=== PATIENT | female | born 1990 | race African-American/Black ===

== ENCOUNTER 2017-02-11 18:38 | Emergency (ER) | payer SELFPAY ==
[2017-02-11 19:06] VITALS: BP 94/64
[2017-02-11 20:17] LABS: Basophils % (Auto) 0.2 % (0.0-1.8); Eosinophils % (Auto) 0.5 % (0.0-4.3); Hematocrit 34.4 % (30.3-42.9); Hemoglobin 11.5 gm/dl (10.1-14.3); Mean Corpuscular HGB Conc 34 % (30-34); Mean Corpuscular Hemoglobin 30 pg (28-32); Mean Corpuscular Volume 90 fl (79-97); Platelet Count 329 K/mm3 (140-440); Red Blood Count 3.84 M/mm3 (3.65-5.03); Red Cell Distribution Width 13.2 % (13.2-15.2); White Blood Count 11.1 K/mm3 (4.5-11.0)
[2017-02-11 20:20] LABS: Bilirubin,Urine NEG (Negative); Blood,Urine NEG (Negative); Ketones,Urine NEG (Negative); Leukocyte Esterase,Urine TR (Negative); Mucus,Urine FEW /HPF; Nitrite,Urine NEG (Negative); Protein,Urine <15 mg/dL mg/dL (Negative)
[2017-02-11 20:27] LABS: RBC,Urine < 1.0 /HPF (0.0-6.0); WBC,Urine < 1.0 /HPF (0.0-6.0)
[2017-02-11 20:33] LABS: Alanine Aminotransferase 12 units/L (7-56); Albumin 3.2 g/dL (3.9-5); Alkaline Phosphatase 48 units/L (35-129); Anion Gap 16 mmol/L; Blood Urea Nitrogen 6 mg/dL (7-17); Calcium 8.9 mg/dL (8.4-10.2); Carbon Dioxide 23 mmol/L (22-30); Chloride 100.4 mmol/L (98-107); Glucose 93 mg/dL (65-100); Lipase 26 units/L (13-60); Potassium 3.4 mmol/L (3.6-5.0); Sodium 136 mmol/L (137-145); Total Protein 6.5 g/dL (6.3-8.2)
== END 2017-02-12 00:34 | disposition left against medical advice (07) ==
LOC: ED 18:38
DX: R10.9 Unspecified abdominal pain (principal); Z53.21 Procedure and treatment not carried out due to patient leaving prior to being seen by health care provider
CPT/HCPCS: 36415; 80053; 81001; 83690; 84702; 85025

== ENCOUNTER 2017-06-05 12:29 | Outpatient (CLI) | payer MEDICAID | END 2017-06-05 14:05 | disposition home or self-care (01) | LOC: TRG 12:29 | PROVIDERS: ATTEND Obstetrics & Gynecology | DX: O99.333 Smoking (tobacco) complicating pregnancy, third trimester (principal); O47.1 False labor at or after 37 completed weeks of gestation; Z3A.37 37 weeks gestation of pregnancy | CPT/HCPCS: 59025 ==

== ENCOUNTER 2017-06-23 16:24 | Outpatient (CLI) | payer MEDICAID ==
[2017-06-23 18:04] VITALS: BP 116/74
== END 2017-06-23 18:15 | disposition home or self-care (01) ==
LOC: TRG 16:24
PROVIDERS: ATTEND Obstetrics & Gynecology
DX: O48.0 Post-term pregnancy (principal); Z3A.40 40 weeks gestation of pregnancy
CPT/HCPCS: 59025

== ENCOUNTER 2018-09-24 23:14 | Emergency (ER) | payer MEDICAID ==
[2018-09-25] MEDS ORDERED: DECADRON IM ONE (00:44)
[2018-09-25] MEDS ORDERED: BICILLIN L-A IM ONE (00:44)
[2018-09-25] MEDS ORDERED: TORADOL IM ONE (00:45)
--- NOTE | 2018-09-25 02:24 | Emergency Department Report ---
ED ENT HPI - General Chief complaint: Sore Throat Stated complaint: COUGH/THROAT PAIN Time Seen by Provider: 09/25/18 00:35 Source: patient Mode of arrival: Ambulatory Limitations: No Limitations - History of Present Illness Initial comments: Patient is a 28-year-old female with no past medical history presents to the ED with complaint of acute onset persistent severe sore throat, swollen tonsils, nasal and sinus congestion for the last 3 days. Patient states that swallowing makes the pain worse. Patient denies dizziness, headache, abdominal pain, chest pain, shortness of breath, fever, chills, dysuria, urinary frequency and urgency, back pain, discharge or an dysphonia. MD complaint: sore throat, difficulty swallowing -: Sudden, days(s) (3) Location: nose, throat Severity: severe Severity scale (0 -10): 7 Quality: burning, aching, sharp Consistency: constant Improves with: none Worsens with: swallowing, eating Associated Symptoms: cough, pain with swallowing - Related Data Previous Rx's Medication Instructions Recorded Last Taken Type Ferrous Sulfate [Feosol 325 MG tab] 325 mg PO BID #60 tablet 06/28/17 Unknown Rx Ibuprofen [Motrin] 800 mg PO Q8HR PRN #20 tablet 09/25/18 Unknown Rx Lidocaine Viscous 2% 15 ml MM Q6H PRN #120 udc 09/25/18 Unknown Rx methylPREDNISolone [Medrol] 4 mg PO DAILY #21 tab.ds.pk 09/25/18 Unknown Rx Allergies Allergy/AdvReac Type Severity Reaction Status Date / Time No Known Allergies Allergy Verified 06/23/17 16:47 ED Dental HPI - General Chief complaint: Sore Throat Stated complaint: COUGH/THROAT PAIN Time Seen by Provider: 09/25/18 00:35 Source: patient Mode of arrival: Ambulatory Limitations: No Limitations - History of Present Illness Initial comments: Patient is a 28-year-old female with no past medical history presents to the ED with complaint of acute onset persistent severe sore throat, swollen tonsils, nasal and sinus congestion for the last 3 days. Patient states that swallowing makes the pain worse. Patient denies dizziness, headache, abdominal pain, chest pain, shortness of breath, fever, chills, dysuria, urinary frequency and urgency, back pain, discharge or an dysphonia. MD complaint: sore throat, difficulty swallowing -: Sudden, days(s) (4) 1 - Swollen erythematous oropharynx and tonsils Severity: severe Quality: sharp Consistency: constant Improves with: none Worsens with: swallowing, eating Dental Associated Symptons: Yes: Headache, Sore Throat - Related Data Previous Rx's Medication Instructions Recorded Last Taken Type Ferrous Sulfate [Feosol 325 MG tab] 325 mg PO BID #60 tablet 06/28/17 Unknown Rx Ibuprofen [Motrin] 800 mg PO Q8HR PRN #20 tablet 09/25/18 Unknown Rx Lidocaine Viscous 2% 15 ml MM Q6H PRN #120 udc 09/25/18 Unknown Rx methylPREDNISolone [Medrol] 4 mg PO DAILY #21 tab.ds.pk 09/25/18 Unknown Rx Allergies Allergy/AdvReac Type Severity Reaction Status Date / Time No Known Allergies Allergy Verified 06/23/17 16:47 ED Review of Systems ROS: Stated complaint: COUGH/THROAT PAIN Other details as noted in HPI Comment: All other systems reviewed and negative Constitutional: no symptoms reported Eyes: as per HPI ENT: as per HPI, throat pain, congestion Respiratory: no symptoms reported, cough. denies: SOB with exertion Cardiovascular: as per HPI. denies: chest pain, palpitations Endocrine: no symptoms reported Gastrointestinal: as per HPI. denies: nausea, vomiting, diarrhea Genitourinary: as per HPI Musculoskeletal: as per HPI Skin: as per HPI Neurological: as per HPI Psychiatric: as per HPI Hematological/Lymphatic: as per HPI ED Past Medical Hx - Past Medical History Previous Medical History?: No Hx Hypertension: No Hx Congestive Heart Failure: No Hx Diabetes: No Hx Deep Vein Thrombosis: No Hx Renal Disease: No Hx Sickle Cell Disease: No Hx Seizures: No Hx Asthma: No Hx COPD: No Hx HIV: No - Surgical History Past Surgical History?: No - Social History Smoking Status: Former Smoker Substance Use Type: None - Medications Home Medications: Home Medications Medication Instructions Recorded Confirmed Last Taken Type Ferrous Sulfate [Feosol 325 MG tab] 325 mg PO BID #60 tablet 06/28/17 Unknown Rx Ibuprofen [Motrin] 800 mg PO Q8HR PRN #20 tablet 09/25/18 Unknown Rx Lidocaine Viscous 2% 15 ml MM Q6H PRN #120 udc 09/25/18 Unknown Rx methylPREDNISolone [Medrol] 4 mg PO DAILY #21 tab.ds.pk 09/25/18 Unknown Rx ED Physical Exam - General Limitations: No Limitations General appearance: alert, in no apparent distress - Head Head exam: Present: atraumatic, normocephalic - Eye Eye exam: Present: normal appearance, PERRL, EOMI Pupils: Present: normal accommodation - ENT ENT exam: Present: other (Erythematous, swollen tonsils. No sign of peritonsillar abscess) - Neck Neck exam: Present: normal inspection, lymphadenopathy - Respiratory Respiratory exam: Present: normal lung sounds bilaterally. Absent: respiratory distress, wheezes, chest wall tenderness - Cardiovascular Cardiovascular Exam: Present: regular rate, normal rhythm, normal heart sounds ED Course Vital Signs 09/24/18 23:19 Temperature 98.7 F Pulse Rate 92 H Respiratory 16 Rate Blood Pressure 134/75 O2 Sat by Pulse 96 Oximetry ED Medical Decision Making - Medical Decision Making Patient is alert and oriented 3 and is not in distress with normal vital signs. Rapid strep test is positive for group A strep. Patient was treated in the ED for pain and also given Bicillin LA 1.2 million units intramuscular injections in the ED, also treated with Decadron and pain medications. On reevaluation, the patient's pain is well controlled and patient was discharged home on medications and referred to the ENT physician for follow-up. Patient advised to return to the ED immediately if symptoms get worse. - Differential Diagnosis Streptococcal pharyngitis, Viral pharyngitis, peritonsillar abscess Critical care attestation.: If time is entered above; I have spent that time in minutes in the direct care of this critically ill patient, excluding procedure time. ED Disposition Clinical Impression: Streptococcal pharyngitis, Acute upper respiratory infection Acute tonsillitis Qualifiers: Pharyngitis/tonsillitis etiology: streptococcus Streptococcal tonsillitis recurrence: not specified as recurrent or not Qualified Code(s): J03.00 - Acute streptococcal tonsillitis, unspecified Disposition: DC- TO HOME OR SELFCARE Is pt being admited?: No Does the pt Need Aspirin: No Condition: Stable Instructions: Strep Throat (ED), Tonsillitis (ED) Additional Instructions: Take medications with food, drink plenty of fluids and follow up with your primary care physician as advised. Consider following up with the ENT physician by contacting his office first thing in the morning for follow-up. Return to the ED immediately if symptoms get worse. Prescriptions: Lidocaine Viscous 2% 15 ml MM Q6H PRN #120 udc PRN Reason: Pain , Severe (7-10) methylPREDNISolone [Medrol] 4 mg PO DAILY #21 tab.ds.pk Ibuprofen [Motrin] 800 mg PO Q8HR PRN #20 tablet PRN Reason: Pain , Severe (7-10) Referrals: [facility] MD BLANK [Primary Care Provider] - 3-5 Days CARLOS PERDUE MD [Staff Physician] - 3-5 Days Time of Disposition: 02:30 Print Language: KOSOVAN
[2018-09-25 02:29] LABS: Amorphous Crystals,Urine 1+; Bacteria,Urine 1+ /HPF (Negative); Bilirubin,Urine NEG (Negative); Blood,Urine NEG (Negative); Calcium Oxalate Crystals,Urine 3+; Color,Urine Yellow (Yellow); HCG Qualitative,Urine Negative (Negative); Mucus,Urine FEW /HPF; Protein,Urine <15 mg/dL mg/dL (Negative); Urobilinogen,Urine < 2.0 mg/dL (<2.0)
[2018-09-25 02:49] VITALS: BP 109/74
== END 2018-09-25 02:47 | disposition home or self-care (01) ==
LOC: ED 23:14
DX: J02.0 Streptococcal pharyngitis (principal); J03.00 Acute streptococcal tonsillitis, unspecified
CPT/HCPCS: 81001; 81025; 87430; 96372; 99283; J0561; J1100; J1885

== ENCOUNTER 2021-04-24 08:02 | Outpatient (CLI) | payer SELFPAY ==
[2021-04-24 08:34] VITALS: BP 108/65
== END 2021-04-24 11:30 | disposition home or self-care (01) ==
LOC: TRG 08:02 → APU 08:04 → TRG 11:30
PROVIDERS: ATTEND Obstetrics & Gynecology
DX: Z34.93 Encounter for supervision of normal pregnancy, unspecified, third trimester (principal); Z3A.37 37 weeks gestation of pregnancy
CPT/HCPCS: 59025

== ENCOUNTER 2021-05-09 15:17 | Inpatient (IN) | payer OTHER ==
[2021-05-09] MEDS ORDERED: LACTATED RINGERS 1,000 ML ONE ×2 (17:04→18:33)
--- NOTE | 2021-05-09 20:26 | History and Physical Report ---
History of Present Illness Date of examination: 05/09/21 Date of admission: 05/09/21 15:17 Chief complaint: Term , obesity. History of present illness: Poor care. . Norberto 05/11/21. Past History Past Medical History: no pertinent history Past Surgical History: no surgical history - Obstetrical History Expected Date of Delivery: 05/11/21 Actual Gestation: 39 Week(s) 5 Day(s) : 4 Para: 2 Medications and Allergies Allergies Allergy/AdvReac Type Severity Reaction Status Date / Time No Known Allergies Allergy Verified 06/23/17 16:47 Home Medications Medication Instructions Recorded Confirmed Last Taken Type No Known Home Medications [No 05/09/21 05/09/21 Unknown History Reported Home Medications] Review of Systems All systems: negative - Vital Signs Vital signs: Vital Signs Pulse Pulse Ox 76 100 05/09/21 17:01 05/09/21 17:01 Temp Pulse Resp BP Pulse Ox 98.5 F 90 111/73 100 05/09/21 17:33 05/09/21 20:01 05/09/21 17:02 05/09/21 20:01 - Physical Exam Cardiovascular: Normal S1, Normal S2 Lungs: Positive: Normal air movement Abdomen: Positive: distention Vagina: Positive: normal moisture Cervix: Negative: lesion, discharge Uterus: Positive: enlarged Anus/Rectum: Positive: normal perianal skin, heme negative. Negative: rectal mass, hemorrhoids Extremities: Positive: normal Deep Tendon Reflex Grade: Normal +2 - Obstetrical FHR: category 1 Cervical Dilatation: 1.5 Cervical Effacement Percentage: 70 station: 0 Results All other labs normal. Assessment and Plan - Patient Problems (1) History of inadequate care Current Visit: Yes Status: Acute (2) with 39 completed weeks gestation Current Visit: Yes Status: Acute (3) Obesity affecting in third trimester Current Visit: Yes Status: Acute Plan to address problem: Admit for induction of labor.
[2021-05-10] MEDS ORDERED: LACTATED RINGERS 1,000 ML ONE (02:29)
[2021-05-10] MEDS ORDERED: LACTATED RINGERS 1,000 ML IV SCH ×2 (04:00→10:00)
[2021-05-10 04:45] LABS: Basophils # (Auto) 0.2 K/mm3 (0.0-0.1); Basophils % (Auto) 2.3 % (0.0-1.8); Eosinophils % (Auto) 0.3 % (0.0-4.3); Hematocrit 33.5 % (30.3-42.9); Hemoglobin 10.7 gm/dl (10.1-14.3); Lymphocytes # (Auto) 2.4 K/mm3 (1.2-5.4); Lymphocytes % (Auto) 29.8 % (13.4-35.0); Mean Corpuscular HGB Conc 32 % (30-34); Mean Corpuscular Volume 88 fl (79-97); Monocytes # (Auto) 0.3 K/mm3 (0.0-0.8); Monocytes % (Auto) 3.9 % (0.0-7.3); Platelet Count 334 K/mm3 (140-440); Red Blood Count 3.81 M/mm3 (3.65-5.03); Red Cell Distribution Width 13.3 % (13.2-15.2)
[2021-05-10] MEDS ORDERED: TERBUTALINE 1 MG/1 ML INJ SUB-Q PRN (09:13)
[2021-05-10] MEDS ORDERED: LOPERAMIDE 2 MG CAP PO PRN (09:13)
[2021-05-10] MEDS ORDERED: LIDOCAINE (2%) 20 MG/1 ML VIAL 20 ML MDV INFILTRATI NR (09:13)
[2021-05-10] MEDS ORDERED: CARBOPROST TROMETHAMINE 250 MCG/1 ML INJ IM PRN (09:13)
[2021-05-10] MEDS ORDERED: miSOPROStol 200 MCG TAB PR PRN (09:13)
[2021-05-10] MEDS ORDERED: AMPICILLIN/NS 2 GM/100 ML 2 GM/100 ML BAG IV ONE ×2 (09:13→09:38)
[2021-05-10] MEDS ORDERED: METHYLERGONOVINE MALEATE 0.2 MG/ML VIAL IM PRN (09:13)
[2021-05-10] MEDS ORDERED: OXYTOCIN 10 UNIT/1 ML INJ IM PRN (09:13)
[2021-05-10] MEDS ORDERED: BUTORPHANOL 2 MG/1 ML INJ IV PRN (10:00)
[2021-05-10] MEDS ORDERED: OXYTOCIN DRIP 30 UNITS/500 ML BAG IV SCH ×2 (10:00)
[2021-05-10] MEDS ORDERED: fentaNYL 100 MCG/2 ML INJ IV PRN (10:00)
[2021-05-10] MEDS ORDERED: ONDANSETRON 4 MG/2 ML INJ IV PRN ×2 (10:00→18:49)
[2021-05-10] MEDS ORDERED: ACETAMINOPHEN 325 MG TAB PO PRN (10:00)
[2021-05-10] MEDS ORDERED: AMPICILLIN/NS 1 GM/50 ML 1 GM/50 ML BAG IV SCH (14:00)
--- NOTE | 2021-05-10 14:12 | Event Note ---
Date: 05/10/21 Mother and fetus stable. 3cm, 70% effaced. Station 0. ARM done with clear fluids.
[2021-05-10] MEDS ORDERED: NALOXONE 2 MG/2 ML INJ IV PRN (14:22)
[2021-05-10] MEDS ORDERED: ePHEDrine SULFATE 50 MG/1 ML INJ IV PRN (14:22)
--- NOTE | 2021-05-10 14:22 | Anesthesia Consultation ---
Anesthesia Consult and Med Hx Date of service: 05/10/21 - Airway Anesthetic Teeth Evaluation: Good ROM Head & Neck: Adequate Mental/Hyoid Distance: Adequate Mallampati Class: Class II Intubation Access Assessment: Probably Good - Pulmonary Exam CTA: Yes - Cardiac Exam Cardiac Exam: RRR - Pre-Operative Health Status ASA Pre-Surgery Classification: ASA3 Proposed Anesthetic Plan: Epidural - Pulmonary Hx Asthma: No COPD: No Hx Pneumonia: No - Cardiovascular System Hx Hypertension: No - Central Nervous System Hx Seizures: No Hx Psychiatric Problems: No - Endocrine Hx Renal Disease: No Hx End Stage Renal Disease: No Hx Hypothyroidism: No Hx Hyperthyroidism: No - Hematic Hx Anemia: No Hx Sickle Cell Disease: No - Other Systems Hx Alcohol Use: No Hx Substance Use: Yes (UDS negative ) Hx Cancer: No Hx Obesity: No - Additional Comments Anesthesia Medical History Comments: unknown health history due to lack of care
--- NOTE | 2021-05-10 14:45 | Progress Note ---
Labor Epidural - Labor Epidural Start Time: 14:35 Stop Time: 14:44 Performed by:: KIM ARCEO Procedure: Patient is requesting epidural for labor pain. H&P, and labs reviewed. Procedure explained, questions answered, consent obtained. Patient in sitting position with blood pressure cuff and pulse ox on and working. Timeout performed immediately before start of procedure. Sterile Duraprep prep/drape. 3 mL 1% lidocaine skin wheal at L[3]-L[4]. 17-gauge tuohy epidural needle advanced to [id number] with saline at [7] cm. 25-gauge spinal needle advanced until clear, free-flowing CSF. Intrathecal dexmedetomidine [5] mcg administered and needle removed. Epidural catheter advanced to [12] cm, negative aspiration for blood and csf, negative test dose 3 ml 1.5% lidocaine with epinephrine. Sterile sponge and tegaderm applied, followed by tape reinforcement. Patient tolerated procedure well. Suss SRNA
[2021-05-10] MEDS ORDERED: fentaNYL-BUPIV 2 MCG/ML-0.125% 200 MCG/100 ML BAG EPIDURAL SCH (15:00)
[2021-05-10] MEDS: ePHEDrine SULFATE 50 MG/1 ML INJ IV PRN ×2 (15:30→15:56)
[2021-05-10 17:21] LABS: Hepatitis C Virus Antibody Non-Reactive (NonReactive)
[2021-05-10] MEDS ORDERED: diphenhydrAMINE 25 MG CAP PO PRN (18:49)
[2021-05-10] MEDS ORDERED: PROMETHAZINE 25 MG TAB PO PRN (18:49)
[2021-05-10] MEDS ORDERED: PROMETHAZINE 25 MG RECT SUPP PR PRN (18:49)
[2021-05-10] MEDS ORDERED: LANOLIN/ZINC/DIMETHICONE (LANSINOH) 7 GM TP PRN (18:49)
[2021-05-10] MEDS ORDERED: WITCH HAZEL/ GLYCERIN PAD TP PRN (18:49)
[2021-05-10] MEDS ORDERED: MAGNESIUM HYDROXIDE (MOM) ORAL LIQD UDC PO PRN (18:49)
[2021-05-10] MEDS ORDERED: HYDROcodone/ACETAMINOPHEN 5-325 MG TAB PO PRN (19:08)
--- NOTE | 2021-05-10 19:20 | Procedure Note ---
OB Delivery Note - Delivery Date of Delivery: 05/10/21 Surgeon: BHAVANA DOSS Estimated blood loss: <100cc - Vaginal Delivery presentation: vertex Delivery position: OA Intrapartum events: none Delivery induction: AROM Delivery augmentation: pitocin Delivery monitor: external FHT, external uterine Route of delivery: Delivery placenta: spontaneous, expressed Delivery cord: nuchal cord, 3 umbilical vessels Episiotomy: none Delivery laceration: none Anesthesia: epidural - Infant A at 1 minute: 8 at 5 minutes: 9 Gender: Female
[2021-05-10] MEDS ORDERED: MINERAL OIL 30 ML ORAL LIQD PO PRN (22:00)
[2021-05-10] MEDS: IBUPROFEN 600 MG TAB PO SCH (22:53)
--- NOTE | 2021-05-11 00:35 | Progress Note ---
Assessment and Plan - Patient Problems (1) History of inadequate care Current Visit: Yes Status: Resolved (2) with 39 completed weeks gestation Current Visit: Yes Status: Resolved (3) Obesity affecting in third trimester Current Visit: Yes Status: Chronic (4) Status post normal vaginal delivery Current Visit: Yes Status: Acute Plan to address problem: Stable. Observation to continue. Subjective - Subjective Date of service: 05/11/21 Principal diagnosis: status post day 1 Interval history: Poor care. . Norberto 05/11/21. Objective - Vital Signs Latest vital signs: Vital Signs Temp Pulse Resp BP Pulse Ox Pulse Ox 05/10/21 23:56 98.6 F 110 H 18 94/65 96 05/10/21 20:22 104 H 99 05/10/21 20:17 120 H 99 05/10/21 20:12 106 H 99 05/10/21 20:07 99 H 99 05/10/21 20:02 108 H 99 05/10/21 19:57 106 H 99 05/10/21 19:52 101 H 98 05/10/21 19:47 97 H 99 05/10/21 19:42 105 H 99 05/10/21 19:37 111 H 100 05/10/21 19:32 101 H 100 05/10/21 19:27 111 H 100 05/10/21 19:22 100 H 99 05/10/21 19:17 102 H 110/74 99 05/10/21 19:12 99.2 F 102 H 99 05/10/21 19:07 105 H 99 05/10/21 19:02 98 H 99 05/10/21 18:57 105 H 99 05/10/21 18:56 100 H 121/55 05/10/21 18:52 103 H 99 05/10/21 18:47 114 H 100 05/10/21 18:42 97 H 100 05/10/21 18:37 101 H 99 05/10/21 18:32 99 H 100 05/10/21 18:27 104 H 99 05/10/21 17:55 144 H 100 05/10/21 17:50 110 H 100 05/10/21 17:45 129 H 100 05/10/21 17:40 176 H 95 05/10/21 17:35 121 H 100 05/10/21 17:30 128 H 100 05/10/21 17:25 109 H 100 05/10/21 17:20 91 H 100 05/10/21 17:15 110 H 100 05/10/21 17:12 95 H 99/65 05/10/21 17:10 100 H 100 05/10/21 17:05 104 H 100 05/10/21 17:00 120 H 100 05/10/21 16:55 94 H 100 05/10/21 16:50 98 H 100 05/10/21 16:45 80 100 05/10/21 16:42 90 92/61 05/10/21 16:40 83 100 05/10/21 16:37 58 L 74 L 05/10/21 16:35 85 98/66 100 05/10/21 16:30 81 100 05/10/21 16:28 100 H 96/68 05/10/21 16:25 82 100 05/10/21 16:24 78 98/65 05/10/21 16:20 81 100 05/10/21 16:15 79 100 05/10/21 16:10 113 H 100 05/10/21 16:09 77 100/62 05/10/21 16:05 79 97/69 05/10/21 16:04 83 100 05/10/21 16:00 71 89/51 05/10/21 15:59 74 100 05/10/21 15:55 76 86/54 05/10/21 15:54 76 100 05/10/21 15:49 85 84/50 100 05/10/21 15:45 77 82/51 05/10/21 15:44 83 84/51 100 05/10/21 15:42 84 92/43 05/10/21 15:39 79 100 05/10/21 15:34 75 100 05/10/21 15:33 78 92/50 05/10/21 15:29 98 H 89/50 100 05/10/21 15:27 82 83/49 05/10/21 15:24 88 100 05/10/21 15:19 107 H 100 05/10/21 15:14 87 99 05/10/21 15:09 76 100 05/10/21 15:08 97 H 101/60 05/10/21 15:04 104 H 105/64 100 05/10/21 15:00 100 H 98/64 05/10/21 14:59 97 H 100 05/10/21 14:54 82 108/56 100 05/10/21 14:49 91 H 100 05/10/21 14:44 89 99 05/10/21 14:43 96 H 136/62 05/10/21 14:39 124 H 131/59 100 05/10/21 14:34 89 100 05/10/21 14:33 90 108/65 05/10/21 14:29 89 107/66 100 05/10/21 14:24 86 100 05/10/21 14:19 82 98 05/10/21 14:14 79 99 05/10/21 14:09 82 100 05/10/21 14:04 89 100 05/10/21 13:59 83 100 05/10/21 13:55 76 97/63 05/10/21 13:54 81 100 05/10/21 13:49 80 100 05/10/21 13:44 89 99 05/10/21 13:32 83 100 05/10/21 13:27 91 H 99 05/10/21 13:26 87 148/77 05/10/21 13:22 79 100 05/10/21 13:17 86 100 05/10/21 13:12 83 100 05/10/21 13:07 82 98 05/10/21 13:02 77 100 05/10/21 12:57 81 100 05/10/21 12:55 75 113/78 05/10/21 12:52 74 100 05/10/21 12:47 82 100 05/10/21 12:42 82 99 05/10/21 12:37 92 H 100 05/10/21 12:32 77 100 05/10/21 12:27 89 100 05/10/21 12:25 78 107/70 05/10/21 12:22 87 100 05/10/21 12:17 88 100 05/10/21 12:12 93 H 100 05/10/21 12:07 80 100 05/10/21 12:02 94 H 100 05/10/21 11:57 91 H 100 05/10/21 11:56 81 110/69 05/10/21 11:52 97 H 99 05/10/21 11:47 86 100 05/10/21 11:42 89 99 05/10/21 11:37 85 100 05/10/21 11:32 84 100 05/10/21 11:27 87 100 05/10/21 11:25 75 111/72 05/10/21 11:22 81 100 05/10/21 11:11 88 99 05/10/21 11:06 80 99 05/10/21 11:01 84 99 05/10/21 10:56 101 H 99 05/10/21 10:55 78 105/71 05/10/21 10:51 86 100 05/10/21 10:46 97 H 100 05/10/21 10:41 95 H 99 05/10/21 10:36 100 H 99 05/10/21 10:31 84 100 05/10/21 10:26 93 H 99 05/10/21 10:25 82 121/78 05/10/21 10:21 87 100 05/10/21 10:16 94 H 100 05/10/21 10:11 84 99 05/10/21 10:06 95 H 98 05/10/21 10:01 83 97 05/10/21 09:56 99 H 99 05/10/21 09:54 86 117/79 05/10/21 09:51 111 H 100 05/10/21 09:46 87 100 05/10/21 09:41 83 100 05/10/21 09:36 91 H 100 05/10/21 09:31 89 100 05/10/21 09:26 89 100 05/10/21 09:21 83 100 05/10/21 09:16 90 100 05/10/21 09:11 101 H 100 05/10/21 09:06 79 100 05/10/21 09:01 81 100 05/10/21 08:56 78 100 05/10/21 08:51 94 H 100 05/10/21 08:42 89 99 05/10/21 08:37 82 99 05/10/21 08:32 86 99 05/10/21 08:27 85 99 05/10/21 08:22 79 100 05/10/21 08:17 77 100 05/10/21 08:12 79 100 100 05/10/21 08:07 92 H 98 05/10/21 08:02 85 100 05/10/21 07:57 85 100 05/10/21 07:52 75 100 05/10/21 07:47 73 100 05/10/21 07:42 70 100 05/10/21 07:37 80 100 05/10/21 07:32 74 100 05/10/21 07:27 74 100 05/10/21 07:22 100 05/10/21 07:10 79 100 05/10/21 07:05 89 100 05/10/21 07:00 82 100 05/10/21 06:55 78 99 05/10/21 06:50 89 99 05/10/21 06:45 81 99 05/10/21 06:40 83 100 05/10/21 06:35 85 100 05/10/21 06:30 75 100 05/10/21 06:25 82 100 05/10/21 06:20 87 100 05/10/21 06:15 86 100 05/10/21 06:10 83 100 05/10/21 06:05 83 100 05/10/21 06:00 98.3 F 76 100 05/10/21 05:59 75 91/59 05/10/21 05:55 73 100 05/10/21 05:50 74 100 05/10/21 05:45 84 100 05/10/21 05:40 86 100 05/10/21 05:35 74 100 05/10/21 05:30 76 100 05/10/21 05:25 70 100 05/10/21 05:20 77 100 05/10/21 05:15 75 100 05/10/21 05:10 78 99 05/10/21 05:05 90 100 05/10/21 04:50 84 100 05/10/21 04:45 87 100 05/10/21 04:40 76 99 05/10/21 04:35 80 99 05/10/21 04:30 80 99 05/10/21 04:25 82 99 05/10/21 04:20 78 100 05/10/21 04:15 78 100 05/10/21 04:10 83 100 05/10/21 04:05 80 100 05/10/21 04:00 81 99 05/10/21 03:55 83 100 05/10/21 03:50 76 99 15 03:45 76 100 05/10/21 03:40 86 99 05/10/21 03:35 77 100 05/10/21 03:30 79 99 05/10/21 03:25 101 H 100 05/10/21 03:20 85 99 05/10/21 03:15 102 H 99 05/10/21 03:10 92 H 99 05/10/21 03:05 111 H 99 05/10/21 03:00 122 H 98 05/10/21 02:55 100 H 99 05/10/21 02:50 90 99 05/10/21 02:45 91 H 99 05/10/21 02:40 100 H 98 05/10/21 02:35 84 98 05/10/21 02:30 92 H 99 05/10/21 02:25 91 H 98 05/10/21 02:20 94 H 99 05/10/21 02:15 102 H 99 05/10/21 02:10 93 H 98 05/10/21 02:05 93 H 98 05/10/21 02:00 86 99 05/10/21 01:55 88 99 05/10/21 01:50 86 99 05/10/21 01:45 86 99 05/10/21 01:40 88 99 05/10/21 01:35 78 99 05/10/21 01:30 79 100 05/10/21 01:25 86 100 05/10/21 01:20 92 H 100 05/10/21 01:15 93 H 99 05/10/21 01:10 81 100 05/10/21 01:05 100 H 100 05/10/21 01:00 80 99 05/10/21 00:55 87 100 05/10/21 00:50 89 100 05/10/21 00:45 83 100 05/10/21 00:40 80 100 05/10/21 00:35 76 100 Intake and Output 05/10/21 05/10/21 05/11/21 15:59 23:59 07:59 Intake Total 37.600 1.333 Output Total 700 600 Balance 37.600 -698.667 -600 Intake: IV 37.600 1.333 PITOCin/NS 30 UNIT/500ML 37.600 1.333 30 units In 500 ml @ 2 mls/hr IV TITR SHAHID Rx#: [id number] Output: Urine 700 600 Indwelling Catheter 700 Void 600 Other: Total, Output Amount 700 600 # Voids Void 1 Estimated Blood Loss 100 - Exam Lungs: Present: Normal air movement Abdomen: Present: normal appearance, soft Uterus: Present: normal, firm Extremities: Present: normal Deep Tendon Reflex Grade: Normal +2 - Labs Labs: Abnormal lab results 05/09/21 Range/Units 17:30 Baso % (Auto) 2.3 H (0.0-1.8) % Baso # (Auto) 0.2 H (0.0-0.1) K/mm3
[2021-05-11] MEDS: ACETAMINOPHEN 325 MG TAB PO PRN ×2 (02:59→18:10)
[2021-05-11] MEDS ORDERED: TETANUS,DIPH,PERTUSS(ACELL) VACCINE 0.5 ML SYRINGE IM ONE (05:15)
[2021-05-11] MEDS: IBUPROFEN 600 MG TAB PO SCH ×4 (05:56→14:42)
[2021-05-11 06:36] LABS: Hematocrit 29.6 % (30.3-42.9); Hemoglobin 9.2 gm/dl (10.1-14.3)
[2021-05-11] MEDS ORDERED: PRENATAL VIT27-FE FUMARATE-FOLIC ACID VIT TAB PO SCH (10:00)
[2021-05-11] MEDS ORDERED: FLU VACC QUAD 2021-22(6MOS UP)/PF 60 MCG/0.5 ML SYRINGE IM ONE (12:00)
[2021-05-11] MEDS ORDERED: DOCUSATE SODIUM 100 MG CAP PO SCH (22:00)
--- NOTE | 2021-05-12 11:01 | Progress Note ---
Assessment and Plan - Patient Problems (1) History of inadequate care Current Visit: Yes Status: Resolved (2) with 39 completed weeks gestation Current Visit: Yes Status: Resolved (3) Obesity affecting in third trimester Current Visit: Yes Status: Chronic (4) Status post normal vaginal delivery Current Visit: Yes Status: Acute Subjective - Subjective Date of service: 05/12/21 Principal diagnosis: status post day 2 Interval history: Poor care. . Norberto 05/11/21. Patient reports: appetite normal, voiding normally, pain well controlled, ambulating normally (wants to go home.) Objective - Vital Signs Latest vital signs: Vital Signs Temp Pulse Resp BP BP Pulse Ox Pulse Ox 05/12/21 07:47 97.5 F L 89 18 101/66 99 05/12/21 00:36 97.8 F 91 H 20 104/72 99 05/11/21 21:40 99 05/11/21 14:44 98.1 F 98 H 20 108/69 98 05/11/21 11:14 98.6 F 101 H 20 104/67 Intake and Output 05/11/21 05/12/21 05/12/21 23:59 07:59 15:59 Intake Total 720 240 Balance 720 240 Intake: Oral 720 240 Other: Total, Intake Amount 120 120 # Voids Void 1 1 - Exam Narrative Exam: Stable. Lungs: Present: Normal air movement Abdomen: Present: normal appearance, soft Uterus: Present: normal, firm Extremities: Present: normal Deep Tendon Reflex Grade: Normal +2
--- NOTE | 2021-05-12 11:03 | Discharge Summary ---
Providers - Providers Date of Admission: 05/09/21 15:17 Date of discharge: 05/12/21 Attending physician: BHAVANA DOSS MD Primary care physician: BHAVANA DOSS MD Hospitalization Reason for admission: induction of labor Delivery: Episiotomy: none Laceration: none Other procedures: none complications: none Discharge diagnosis: IUP at term delivered baby: female Condition at discharge: Good Disposition: 01 HOME / SELF CARE / HOMELESS - Discharge Diagnoses (1) History of inadequate care Status: Resolved (2) with 39 completed weeks gestation Status: Resolved (3) Obesity affecting in third trimester Status: Chronic (4) Status post normal vaginal delivery Status: Acute Plan - Provider Discharge Summary Activity: routine, no sex for 6 weeks, no heavy lifting 4 weeks, no strenuous exercise Diet: routine Instructions: routine Additional instructions: [] Smoking cessation referral if applicable(refer to patient education folder for contact #) [] Refer to [facility] Booklet Call your doctor immediately for: * Fever > 100.5 * Heavy vaginal bleeding ( >1 pad per hour) * Severe persistent headache * Shortness of breath * Reddened, hot, painful area to leg or breast * Drainage or odor from incision. * Keep incision clean and dry at all times and follow doctor's instructions regarding bathing/showering - Follow up plan Follow up: BHAVANA DOSS MD [Primary Care Provider] - 7 Days
[2021-05-12] MEDS: IBUPROFEN 600 MG TAB PO SCH (16:28)
[2021-05-12 17:58] VITALS: BP 103/65
== END 2021-05-12 20:25 | disposition home or self-care (01) | DRG 807 ==
LOC: LD 15:17 → OB 05-10 21:01
PROVIDERS: ADMIT Obstetrics & Gynecology; ATTEND Obstetrics & Gynecology
PROC: 10E0XZZ Delivery of Products of Conception, External Approach (ICD-10-PCS; principal; 2021-05-10)
PROC: 10907ZC Drainage of Amniotic Fluid, Therapeutic from Products of Conception, Via Natural or Artificial Opening (ICD-10-PCS; 2021-05-10)
PROC: 3E0R3BZ Introduction of Anesthetic Agent into Spinal Canal, Percutaneous Approach (ICD-10-PCS; 2021-05-10)
PROC: 00HU33Z Insertion of Infusion Device into Spinal Canal, Percutaneous Approach (ICD-10-PCS; 2021-05-10)
PROC: 3E0234Z Introduction of Serum, Toxoid and Vaccine into Muscle, Percutaneous Approach (ICD-10-PCS; 2021-05-11)
DX: O69.81X0 Labor and delivery complicated by cord around neck, without compression, not applicable or unspecified (principal); Z37.0 Single live birth; Z3A.39 39 weeks gestation of pregnancy; Z20.822 Contact with and (suspected) exposure to COVID-19; O99.214 Obesity complicating childbirth; Z23 Encounter for immunization
CPT/HCPCS: 36415; 85014; 85018; 85025; 86592; 86706; 86762; 86803; 86850; 86900; 86901; 87806; 90471; 90715; 99211; G0378; J3490; G0463; J0290; J2590; J7120; U0003